=== PATIENT | male | born 1995 | race Caucasian/White ===

== ENCOUNTER 2021-12-29 20:43 | Emergency (ER) | payer OTHER ==
[~2021-12-29] VITALS: Ht 185.4 cm; Wt 100.0 kg
[~2021-12-29 20:43] MED LIST: LEVE750T4 PO
[2021-12-29] MEDS ORDERED: LevETIRAcetam 250 MG TABLET PO ONE (22:30)
[2021-12-29] MEDS ORDERED: LEVE250T4 PO (22:53)
[2021-12-29 22:56] VITALS: BP 130/88
== END 2021-12-29 22:55 | disposition home or self-care (01) ==
LOC: EMS 20:43
DX: R56.9 Unspecified convulsions (principal); Z76.0 Encounter for issue of repeat prescription; F17.210 Nicotine dependence, cigarettes, uncomplicated
CPT/HCPCS: 99281; 99283

== ENCOUNTER 2022-02-10 08:02 | Emergency (ER) | payer OTHER ==
[~2022-02-10] VITALS: Ht 172.7 cm; Wt 97.1 kg
[~2022-02-10 08:02] MED LIST changes: +LEVE250T4 PO
[2022-02-10] MEDS ORDERED: MORPHINE SULFATE 4 MG/ML SYRINGE IVP ONE (08:15)
[2022-02-10] MEDS ORDERED: ONDANSETRON HCL 4 MG/2 ML VIAL IVP ONE (08:15)
[2022-02-10] MEDS ORDERED: KETOROLAC TROMETHAMINE 30 MG/ML VIAL IVP ONE (08:15)
[2022-02-10] MEDS ORDERED: SODIUM CHLORIDE 0.9% 1,000 ML IV ONE (08:15)
[2022-02-10 10:24] LABS: APPEARANCE,URINE HAZY (CLEAR); BILIRUBIN,URINE NEGATIVE (NEGATIVE); GLUCOSE, URINE (UA) NEGATIVE (NEGATIVE); KETONES,URINE 40-60 mg/dL (NEGATIVE); LEUKOCYTE ESTERASE ,URINE TRACE (NEGATIVE); NITRATE,URINE NEGATIVE (NEGATIVE); OCCULT BLOOD,URINE LARGE (NEGATIVE); PROTEIN,URINE 300-600,SEE CONFIRM mg/dL (NEGATIVE); SPECIFIC GRAVITIY, URINE 1.037 (1.003-1.030)
[2022-02-10 10:35] VITALS: BP 107/51
[2022-02-10] MEDS ORDERED: IBUP-2070 PO (10:45)
[2022-02-10 10:49] LABS: RBC,URINE >100 /HPF (0-2); WBC,URINE 0-2 /HPF (0-5)
[2022-02-10 10:50] LABS: BACTERIA,URINE Moderate /HPF (None Seen); CALCIUM OXALATE CRYSTALS,UR Moderate /LPF (None Seen)
[2022-02-10 10:51] LABS: SULFOSALICYLIC ACID,URINE 3+ (Negative)
== END 2022-02-10 11:21 | disposition home or self-care (01) ==
LOC: EMS 08:05
DX: N20.0 Calculus of kidney (principal); F17.210 Nicotine dependence, cigarettes, uncomplicated
CPT/HCPCS: 99284; 74176; 96374; 96375; 96361; 81001; 87086; 87186; J1885; J2270; J2405; J7030; 81002

== ENCOUNTER 2022-03-23 13:04 | Emergency (ER) | payer OTHER ==
[~2022-03-23] VITALS: Ht 185.4 cm; Wt 131.8 kg
[~2022-03-23 13:04] MED LIST changes: +IBUP-1492 PO
[2022-03-23 13:23] VITALS: BP 147/97
[2022-03-23] MEDS ORDERED: LevETIRAcetam 250 MG TABLET PO ONE (17:00)
[2022-03-23] MEDS ORDERED: LEVE750T4 PO (17:00)
== END 2022-03-23 17:26 | disposition home or self-care (01) ==
LOC: EMS 13:04
DX: Z76.0 Encounter for issue of repeat prescription (principal); G40.909 Epilepsy, unspecified, not intractable, without status epilepticus; F12.90 Cannabis use, unspecified, uncomplicated; F17.210 Nicotine dependence, cigarettes, uncomplicated
CPT/HCPCS: 99281; Z7502; Z7610

== ENCOUNTER 2023-12-01 13:30 | Emergency (ER) | payer OTHER ==
[~2023-12-01] VITALS: Ht 185.4 cm; Wt 86.4 kg
[~2023-12-01 13:30] MED LIST changes: -LEVE250T4 PO; +LEVE250T81 PO
[2023-12-01 13:44] VITALS: TEMP 99.2
[2023-12-01 15:24] LABS: BASOPHILS % (AUTO) 0.7 % (0.0-2.0); EOSINOPHILS % (AUTO) 2.4 % (1.0-6.0); HEMATOCRIT 48.8 % (41-53); HEMOGLOBIN 16.3 g/dL (13.5-17.5); LYMPHOCYTES # (AUTO) 2.7 K/uL (1.0-4.8); LYMPHOCYTES % (AUTO) 44.9 % (22.0-44.0); MEAN CORPUSCULAR HEMOGLOBIN 31.4 pg (26.0-34.0); MEAN CORPUSCULAR HGB CONC 33.3 G/dL (31.0-37.0); MEAN CORPUSCULAR VOLUME 94 fL (80-100); MONOCYTES # (AUTO) 0.6 K/uL (0.1-1.0); MONOCYTES % (AUTO) 9.3 % (2.0-9.0); NEUTROPHILS # (AUTO) 2.5 K/uL (1.8-7.7); NEUTROPHILS % (AUTO) 42.7 % (40.0-70.0); PLATELET COUNT (AUTO) 249 K/uL (150-450); RED BLOOD CELL COUNT(AUTO) 5.18 MIL/uL (4.50-5.90); WHITE BLOOD COUNT (AUTO) 5.9 K/uL (4.5-11.0)
[2023-12-01] MEDS: LevETIRAcetam 500 MG TABLET PO ONE (15:30)
[2023-12-01] MEDS: ACETAMINOPHEN 500 MG TABLET PO ONE (15:30)
[2023-12-01 15:37] LABS: ANION GAP 9 mmol/L (8-16); CALCIUM, TOTAL 8.7 mg/dL (8.8-10.5); CARBON DIOXIDE 26 mmol/L (22-29); CHLORIDE 104 mmol/L (98-107); CREATININE 1.04 mg/dL (0.60-1.30); GLOMERULAR FILTR. RATE CALC > 60 mL/min (>60); GLUCOSE,RANDOM 89 mg/dL (70-110); SODIUM SERUM 139 mmol/L (136-145); UREA NITROGEN, BLOOD 13 mg/dL (7-18)
[2023-12-01] MEDS ORDERED: LEVE750T4 PO (15:52)
[2023-12-01 16:00] VITALS: BP 107/70; PULSE 60; RESP 18; O2SAT 96
== END 2023-12-01 16:13 | disposition home or self-care (01) ==
LOC: EMS 13:30
DX: G40.909 Epilepsy, unspecified, not intractable, without status epilepticus (principal); R51.9 Headache, unspecified; F17.210 Nicotine dependence, cigarettes, uncomplicated; F12.90 Cannabis use, unspecified, uncomplicated
CPT/HCPCS: 80048; 85025; 99283